=== PATIENT | female | born 1950 | race Caucasian/White ===

== ENCOUNTER 2017-07-28 05:13 | Emergency (ER) | payer MEDICARE ==
[~2017-07-28] VITALS: Ht 157.5 cm; Wt 74.8 kg
[~2017-07-28 05:13] MED LIST: AZIT250 PO; BIOTIN10000 MC1 PO; BP MED; CALCA500CH PO; CHOLESTEROL; CITA20 PO; CLOP75; CYCL10 PO; FLUO20; GLYB5 PO; HYDACE5 PO; IBUP800 PO; LISI20 PO; LISI5 PO; METF500 PO; NAPR500 PO; PRAV20 PO; Prednisone20 MG PO; SERT50 PO; TRAM50 PO
[2017-07-28] MEDS ORDERED: METF500 PO (05:39)
[2017-07-28] MEDS ORDERED: Glipizide ER2.5 MG PO (05:39)
[2017-07-28] MEDS ORDERED: CLOP75 PO (05:39)
[2017-07-28] MEDS ORDERED: CITA20 (05:40)
[2017-07-28] MEDS ORDERED: LISI5 (05:40)
[2017-07-28 05:59] LABS: BASOPHILS ABSOLUTE AUTO 0.06 K/mm3 (0.00-0.23); BASOPHILS PERCENT AUTO 1 % (0-2); EOSINOPHILS ABSOLUTE AUTO 0.16 K/mm3 (0.00-0.68); EOSINOPHILS PERCENT AUTO 2 % (0-6); Hematocrit 36.7 % (33.0-51.0); Hemoglobin 12.2 g/dL (11.5-16.0); IMMATURE GRAN ABSOLUTE AUTO 0.02 K/mm3 (0.00-0.10); IMMATURE GRAN PERCENT AUTO 0 % (0-1); LYMPHOCYTES ABSOLUTE AUTO 1.88 K/mm3 (0.84-5.20); LYMPHOCYTES PERCENT AUTO 27 % (21-46); MONOCYTES ABSOLUTE AUTO 0.61 K/mm3 (0.16-1.47); MONOCYTES PERCENT AUTO 9 % (4-13); Mean Corpuscular HGB 29.7 pg (26.0-34.0); Mean Corpuscular HGB Conc 33.2 g/dL (31.5-36.5); Mean Corpuscular Volume 89 fL (80-100); Mean Platelet Volume 10.7 fL (9.1-12.4); NEUTROPHILS ABSOLUTE AUTO 4.34 K/mm3 (1.96-9.15); NEUTROPHILS PERCENT AUTO 61 % (41-73); Platelet Count 203 K/mm3 (150-400); RDW Coefficient Variation 12.9 % (11.7-14.2); RDW Standard Deviation 42.2 fL (35.1-46.3); Red Blood Cell Count 4.11 M/mm3 (3.80-5.20); White Blood Cell Count 7.07 K/mm3 (4.00-11.30)
[2017-07-28 06:22] LABS: Alanine Aminotransfer (ALT/SGP 18 U/L (12-78); Albumin, Blood 3.4 g/dL (3.4-5.0); Alk Phos 95 U/L (50-136); Anion Gap 10 mmol/L (6-16); Aspartate Aminotrans (AST/SGOT 11 U/L (12-37); Bilirubin, Total 0.4 mg/dL (0.1-1.0); Blood Urea Nitrogen 12 mg/dL (8-24); Bun/Creatinine Ratio 22.1 (12.0-20.0); CO2, Blood 21 mmol/L (21-32); Calcium, Blood 8.8 mg/dL (8.5-10.1); Chloride, Blood 106 mmol/L (98-108); Creatinine, Blood 0.54 mg/dL (0.40-1.00); Globulin, Blood 3.4 g/dL (2.2-4.0); Glomerular Filtration Rate >60 (60-); Glucose, Blood 222 mg/dL (70-99); Potassium, Blood 4.1 mmol/L (3.5-5.5); Sodium, Blood 137 mmol/L (136-145); Total Protein, Blood 6.8 g/dL (6.4-8.2)
== END 2017-07-28 06:53 | disposition home or self-care (01) ==
LOC: ER 05:13
PROVIDERS: Emergency Medicine
DX: S39.012A Strain of muscle, fascia and tendon of lower back, initial encounter (principal); E11.9 Type 2 diabetes mellitus without complications; I10 Essential (primary) hypertension; Z88.5 Allergy status to narcotic agent; Z79.899 Other long term (current) drug therapy; Z79.84 Long term (current) use of oral hypoglycemic drugs; Z79.02 Long term (current) use of antithrombotics/antiplatelets; X58.XXXA Exposure to other specified factors, initial encounter
CPT/HCPCS: 36415; 72100; 80053; 81000; 85025; 99283

== ENCOUNTER → 2020-06-12 | Outpatient (CLI) | payer MEDICARE ==
[~2020-06-12] MED LIST changes: +CITA20; +CLOP75 PO; +Glipizide ER2.5 MG PO; +LISI5
== END | disposition home or self-care (01) ==
LOC: LAB 09:57 → LAB SHORT 09:57
DX: E11.9 Type 2 diabetes mellitus without complications (principal)
CPT/HCPCS: 83036

== ENCOUNTER → 2022-10-29 | Outpatient (CLI) | payer OTHER ==
[2022-10-29 19:24] LABS: BASOPHILS ABSOLUTE AUTO 0.06 K/mm3 (0.00-0.23); BASOPHILS PERCENT AUTO 1 % (0-2); EOSINOPHILS ABSOLUTE AUTO 0.15 K/mm3 (0.00-0.68); EOSINOPHILS PERCENT AUTO 2 % (0-6); Hematocrit 37.1 % (33.0-51.0); Hemoglobin 11.9 g/dL (11.5-16.0); IMMATURE GRAN ABSOLUTE AUTO 0.02 K/mm3 (0.00-0.10); IMMATURE GRAN PERCENT AUTO 0 % (0-1); LYMPHOCYTES ABSOLUTE AUTO 1.45 K/mm3 (0.84-5.20); LYMPHOCYTES PERCENT AUTO 19 % (21-46); MONOCYTES ABSOLUTE AUTO 0.55 K/mm3 (0.16-1.47); MONOCYTES PERCENT AUTO 7 % (4-13); Mean Corpuscular HGB 29.1 pg (26.0-34.0); Mean Corpuscular HGB Conc 32.1 g/dL (31.5-36.5); Mean Corpuscular Volume 91 fL (80-100); Mean Platelet Volume 11.5 fL (9.1-12.4); NEUTROPHILS ABSOLUTE AUTO 5.51 K/mm3 (1.96-9.15); NEUTROPHILS PERCENT AUTO 71 % (41-73); Platelet Count 254 K/mm3 (150-400); RDW Coefficient Variation 14.5 % (11.7-14.2); RDW Standard Deviation 47.8 fL (35.1-46.3); Red Blood Cell Count 4.09 M/mm3 (3.80-5.20); White Blood Cell Count 7.74 K/mm3 (4.00-11.30)
[2022-10-29 20:04] LABS: Bun/Creatinine Ratio 33.3 (12.0-20.0); Calcium, Blood 9.6 mg/dL (8.5-10.1); Creatinine, Blood 0.54 mg/dL (0.40-1.00); Percent Saturation 13.2 % (15.0-50.0); Potassium, Blood 4.2 mmol/L (3.5-5.5)
== END ==
LOC: LAB 16:48 → LAB SHORT 16:48
PROVIDERS: Nurse Practitioner Family
DX: E11.42 Type 2 diabetes mellitus with diabetic polyneuropathy (principal); D64.9 Anemia, unspecified
CPT/HCPCS: 80048; 82728; 83036; 83540; 83550; 85025

== ENCOUNTER → 2023-01-21 | Outpatient (CLI) | payer OTHER ==
[2023-01-21 16:02] LABS: BASOPHILS ABSOLUTE AUTO 0.07 K/mm3 (0.00-0.23); BASOPHILS PERCENT AUTO 1 % (0-2); EOSINOPHILS ABSOLUTE AUTO 0.13 K/mm3 (0.00-0.68); EOSINOPHILS PERCENT AUTO 2 % (0-6); Hematocrit 37.8 % (33.0-51.0); Hemoglobin 12.2 g/dL (11.5-16.0); IMMATURE GRAN ABSOLUTE AUTO 0.02 K/mm3 (0.00-0.10); IMMATURE GRAN PERCENT AUTO 0 % (0-1); LYMPHOCYTES ABSOLUTE AUTO 1.31 K/mm3 (0.84-5.20); LYMPHOCYTES PERCENT AUTO 21 % (21-46); MONOCYTES ABSOLUTE AUTO 0.38 K/mm3 (0.16-1.47); MONOCYTES PERCENT AUTO 6 % (4-13); Mean Corpuscular HGB Conc 32.3 g/dL (31.5-36.5); Mean Corpuscular Volume 90 fL (80-100); Mean Platelet Volume 11.2 fL (9.1-12.4); NEUTROPHILS ABSOLUTE AUTO 4.46 K/mm3 (1.96-9.15); NEUTROPHILS PERCENT AUTO 70 % (41-73); Platelet Count 227 K/mm3 (150-400); RDW Standard Deviation 49.4 fL (35.1-46.3); Red Blood Cell Count 4.21 M/mm3 (3.80-5.20); White Blood Cell Count 6.37 K/mm3 (4.00-11.30)
[2023-01-21 17:04] LABS: Percent Saturation 17.7 % (15.0-50.0)
== END | disposition home or self-care (01) ==
LOC: LAB 11:36 → LAB SHORT 11:36
PROVIDERS: Nurse Practitioner Family
DX: D50.8 Other iron deficiency anemias (principal)
CPT/HCPCS: 82728; 83540; 83550; 85025

== ENCOUNTER 2023-12-06 02:22 | Day surgery (SDC) | payer OTHER ==
[~2023-12-06 02:22] MED LIST changes: +GLIP10ER PO; -Glipizide ER2.5 MG PO; +Sod Ferric Gluc Complx/Sucrose 125 MG in NS 100 ML IV SCH
[2023-12-06 07:56] VITALS: BP 148/71
[2023-12-06] MEDS ORDERED: PANTOPRAZOLE SO40 M2 PO (08:52)
[2023-12-06] MEDS ORDERED: CELEXA40 M9 PO (08:52)
[2023-12-06] MEDS ORDERED: LISI20 (08:53)
[2023-12-06] MEDS ORDERED: Cyclobenzaprine5 MG PO (08:55)
[2023-12-06] MEDS ORDERED: FERROUS GLUCON324 M7 PO (08:55)
[2023-12-06] MEDS ORDERED: ATORVASTATIN CA20 MG PO (08:56)
== END 2023-12-06 09:09 | disposition home or self-care (01) ==
LOC: ATC 02:22
DX: D50.9 Iron deficiency anemia, unspecified (principal); E11.9 Type 2 diabetes mellitus without complications; E78.5 Hyperlipidemia, unspecified; Z88.5 Allergy status to narcotic agent; Z79.84 Long term (current) use of oral hypoglycemic drugs; Z79.899 Other long term (current) drug therapy
CPT/HCPCS: 96365; J2916

== ENCOUNTER 2023-12-20 01:33 | Day surgery (SDC) | payer OTHER ==
[~2023-12-20 01:33] MED LIST changes: +ATORVASTATIN CA20 MG PO; +CELEXA40 M9 PO; +Cyclobenzaprine5 MG PO; +FERROUS GLUCON324 M7 PO; +LISI20; +PANTOPRAZOLE SO40 M2 PO
[2023-12-20 09:20] VITALS: BP 126/70
== END 2023-12-20 10:24 | disposition home or self-care (01) ==
LOC: ATC 01:33
DX: D50.9 Iron deficiency anemia, unspecified (principal); E78.5 Hyperlipidemia, unspecified; I10 Essential (primary) hypertension; E11.42 Type 2 diabetes mellitus with diabetic polyneuropathy; Z88.5 Allergy status to narcotic agent; Z79.899 Other long term (current) drug therapy; Z79.84 Long term (current) use of oral hypoglycemic drugs
CPT/HCPCS: 96365; J2916

== ENCOUNTER → 2023-12-30 | Outpatient (CLI) | payer OTHER ==
[~2023-12-30] MED LIST changes: -Sod Ferric Gluc Complx/Sucrose 125 MG in NS 100 ML IV SCH
[2023-12-30 11:17] LABS: Source, Urine Voided
[2023-12-30 11:49] LABS: Appearance, Urine Clear (Clear); Bilirubin, Urine Neg (Neg); Blood, Urine Neg (Neg); Color, Urine Yellow (P-Yellow); Glucose Qualitative, Urine 4+ (Neg); Ketones, Urine Neg (Neg); Leukocyte Esterase, Urine Neg (Neg); Nitrite, Urine Neg (Neg); Protein, Urine Neg (Neg); Specific Gravity, Urine 1.015 (1.003-1.022); Urobilinogen, Urine NORM (Normal)
== END | disposition home or self-care (01) ==
LOC: LAB 11:12 → LAB SHORT 11:12
PROVIDERS: Nurse Practitioner Family
DX: M54.9 Dorsalgia, unspecified (principal)
CPT/HCPCS: 81003; 87086

== ENCOUNTER 2024-03-01 04:14 | Day surgery (SDC) | payer OTHER ==
[~2024-03-01 04:14] MED LIST changes: +Sod Ferric Gluc Complx/Sucrose 125 MG in NS 100 ML IV SCH
[2024-03-01 10:12] VITALS: BP 121/72
== END 2024-03-01 11:14 | disposition home or self-care (01) ==
LOC: ATC 04:14
DX: D50.9 Iron deficiency anemia, unspecified (principal); E11.42 Type 2 diabetes mellitus with diabetic polyneuropathy; I10 Essential (primary) hypertension; K21.9 Gastro-esophageal reflux disease without esophagitis; E78.5 Hyperlipidemia, unspecified; F32.9 Major depressive disorder, single episode, unspecified; Z88.5 Allergy status to narcotic agent; Z79.84 Long term (current) use of oral hypoglycemic drugs; Z79.899 Other long term (current) drug therapy
CPT/HCPCS: 96365; J2916

== ENCOUNTER 2024-03-13 02:45 | Day surgery (SDC) | payer OTHER ==
[~2024-03-13 02:45] MED LIST changes: -Sod Ferric Gluc Complx/Sucrose 125 MG in NS 100 ML IV SCH
[2024-03-13] MEDS ORDERED: Sod Ferric Gluc Complx/Sucrose 125 MG in NS 100 ML IV SCH (06:00)
[2024-03-13 09:54] VITALS: BP 121/72
== END 2024-03-13 11:05 | disposition home or self-care (01) ==
LOC: ATC 02:45
DX: D50.9 Iron deficiency anemia, unspecified (principal); K21.9 Gastro-esophageal reflux disease without esophagitis; I10 Essential (primary) hypertension; F17.210 Nicotine dependence, cigarettes, uncomplicated; E78.00 Pure hypercholesterolemia, unspecified; E11.42 Type 2 diabetes mellitus with diabetic polyneuropathy; F32.9 Major depressive disorder, single episode, unspecified; Z79.02 Long term (current) use of antithrombotics/antiplatelets; Z79.84 Long term (current) use of oral hypoglycemic drugs; Z79.899 Other long term (current) drug therapy; Z88.5 Allergy status to narcotic agent
CPT/HCPCS: 96365; J2916

== ENCOUNTER 2024-05-24 03:58 | Day surgery (SDC) | payer OTHER ==
[~2024-05-24 03:58] MED LIST changes: +Sod Ferric Gluc Complx/Sucrose 125 MG in NS 100 ML IV SCH
[2024-05-24 15:17] VITALS: BP 116/75
== END 2024-05-24 16:20 | disposition home or self-care (01) ==
LOC: ATC 03:58
DX: D50.9 Iron deficiency anemia, unspecified (principal); K21.9 Gastro-esophageal reflux disease without esophagitis; I10 Essential (primary) hypertension; F32.A Depression, unspecified; E11.42 Type 2 diabetes mellitus with diabetic polyneuropathy; Z79.84 Long term (current) use of oral hypoglycemic drugs; Z79.899 Other long term (current) drug therapy
CPT/HCPCS: 96365; J2916

== ENCOUNTER 2024-06-11 04:57 | Day surgery (SDC) | payer OTHER ==
[2024-06-11 15:22] VITALS: BP 148/72
== END 2024-06-11 16:25 | disposition home or self-care (01) ==
LOC: ATC 04:57
DX: D50.9 Iron deficiency anemia, unspecified (principal); K21.9 Gastro-esophageal reflux disease without esophagitis; I10 Essential (primary) hypertension; E78.5 Hyperlipidemia, unspecified; E11.42 Type 2 diabetes mellitus with diabetic polyneuropathy; F32.9 Major depressive disorder, single episode, unspecified; Z79.84 Long term (current) use of oral hypoglycemic drugs; Z79.899 Other long term (current) drug therapy; Z88.5 Allergy status to narcotic agent
CPT/HCPCS: 96365; J2916

== ENCOUNTER 2024-06-30 15:07 | Emergency (ER) | payer OTHER ==
[~2024-06-30] VITALS: Ht 157.5 cm; Wt 67.1 kg
[~2024-06-30 15:07] MED LIST changes: -Sod Ferric Gluc Complx/Sucrose 125 MG in NS 100 ML IV SCH
[2024-06-30 15:13] VITALS: BP 145/79
== END 2024-06-30 16:22 | disposition home or self-care (01) ==
LOC: ER 15:07
DX: I10 Essential (primary) hypertension (principal); R10.13 Epigastric pain; E11.9 Type 2 diabetes mellitus without complications; Z86.73 Personal history of transient ischemic attack (TIA), and cerebral infarction without residual deficits; Z79.02 Long term (current) use of antithrombotics/antiplatelets; Z79.84 Long term (current) use of oral hypoglycemic drugs; Z79.899 Other long term (current) drug therapy; Z88.5 Allergy status to narcotic agent
CPT/HCPCS: 93005; 93010; 99284-25

== ENCOUNTER 2024-10-21 02:23 | Day surgery (SDC) | payer OTHER ==
[2024-10-21] MEDS ORDERED: Sod Ferric Gluc Complx/Sucrose 125 MG in NS 100 ML IV SCH (06:00)
[2024-10-21 12:04] VITALS: BP 141/100
== END 2024-10-21 12:56 | disposition home or self-care (01) ==
LOC: ATC 02:23
DX: D50.9 Iron deficiency anemia, unspecified (principal); K21.9 Gastro-esophageal reflux disease without esophagitis; I10 Essential (primary) hypertension; E78.5 Hyperlipidemia, unspecified; E11.42 Type 2 diabetes mellitus with diabetic polyneuropathy; Z88.5 Allergy status to narcotic agent; Z79.84 Long term (current) use of oral hypoglycemic drugs; Z79.899 Other long term (current) drug therapy
CPT/HCPCS: 96365; J2916

== ENCOUNTER → 2024-11-08 | Outpatient (CLI) | payer OTHER ==
[~2024-11-08] MED LIST changes: +LAVAP4L PO
[2024-11-08 11:24] LABS: Creatinine, Urine Random 48.5 mg/dL (27.00-270.00)
[2024-11-08 11:26] LABS: Microalb/Creat Ratio UR, Rand 19.484 mg/g (0.000-30.000); Microalbumin, Random Urine 9.45 mg/L (0.000-20.000)
== END ==
LOC: LAB 08:16 → LAB SHORT 08:16
PROVIDERS: Nurse Practitioner Family
DX: E11.42 Type 2 diabetes mellitus with diabetic polyneuropathy (principal)
CPT/HCPCS: 82043; 82570